=== PATIENT | female | born 1935 | race Caucasian/White ===

== ENCOUNTER 2020-03-24 06:53 | Inpatient (IN) ==
[2020-03-24] MEDS ORDERED: Ondansetron 4 MG/2 ML VIAL IVP PRN (08:59)
[2020-03-24] MEDS ORDERED: Naloxone 0.4 MG/ML INJ IVP PRN (08:59)
[2020-03-24] MEDS ORDERED: Perflutren Lipid Microsphere 1.3 ML in 0.9 % Sodium Chloride 8.7 ML IVP PRN (09:01)
[2020-03-24] MEDS ORDERED: D5% in Water 1,000 ML IVC PRN (13:18)
[2020-03-24] MEDS ORDERED: *HR* Dextrose 50 % in Water (Vial) 50 ML VIAL IVP PRN (13:18)
[2020-03-24] MEDS ORDERED: Dextrose Gel 15 GM/37.5 ML TUBE PO PRN ×2 (13:18)
[2020-03-24] MEDS ORDERED: *HR* Heparin 5,000 UNIT/ML VIAL IVP PRN ×2 (14:25)
[2020-03-24 16:02] LABS: Hematocrit 37.3 % (35.3-44.9); Hemoglobin 12.2 g/dL (11.5-15.4); Mean Corpuscular HGB Conc 32.7 g/dL (31.6-35.5); Mean Corpuscular Hemoglobin 31.5 pg (28.0-33.3); Mean Corpuscular Volume 96.4 fL (83.0-100.0); Mean Platelet Volume 10.6 fL (9.4-12.4); Platelet Count 130 K/mcL (140-400); Red Blood Count 3.87 M/mcL (3.82-4.97); Red Cell Distribution Width 14.1 % (11.5-14.5); White Blood Count 8.3 K/mcL (4.3-11.1)
[2020-03-24 16:07] LABS: Heparin anti-factor XA UFH 0.35 IU/mL (0.30-0.70); INR 1.3; Prothrombin Time 14.5 Seconds (9.4-12.1)
[2020-03-24 16:21] LABS: Calcium 9.2 mg/dL (8.6-10.3); Potassium 4.9 mEq/L (3.5-5.1)
[2020-03-24] MEDS: Heparin 25,000UNIT/250ML 1/2NS 25,000 UNIT/250 ML IV.SOLN IVC SCH (16:57)
[2020-03-24 17:05] LABS: Magnesium 1.8 mg/dL (1.6-2.6)
[2020-03-24] MEDS ORDERED: *HR* Warfarin 2.5 MG TABLET PO ONE (18:00)
[2020-03-24] MEDS ORDERED: Warfarin perPT PO PRN (18:00)
[2020-03-24] MEDS: Insulin LISPRO 300 UNITS/3 ML VIAL SQ SCH (18:38)
[2020-03-25 02:57] LABS: Basophils % 0.5 %; Eosinophils % 0.2 %; Hematocrit 37.8 % (35.3-44.9); Hemoglobin 12.2 g/dL (11.5-15.4); Immature Granulocytes % 0.6 % (0-4); Lymphocytes # 1.2 K/mcL (0.6-4.6); Lymphocytes % 14.5 %; Mean Corpuscular HGB Conc 32.3 g/dL (31.6-35.5); Mean Corpuscular Volume 95.9 fL (83.0-100.0); Mean Platelet Volume 11.2 fL (9.4-12.4); Monocytes # 0.6 K/mcL (0.0-1.3); Monocytes % 7.5 %; Neutrophils # 6.5 K/mcL (1.6-8.9); Platelet Count 144 K/mcL (140-400); Red Blood Count 3.94 M/mcL (3.82-4.97); Red Cell Distribution Width 14.2 % (11.5-14.5); Segmented Neutrophils % 76.7 %; White Blood Count 8.5 K/mcL (4.3-11.1)
[2020-03-25 03:01] LABS: INR 1.5; Prothrombin Time 16.6 Seconds (9.4-12.1)
[2020-03-25 03:15] LABS: Magnesium 1.8 mg/dL (1.6-2.6); Potassium 5.3 mEq/L (3.5-5.1)
[2020-03-25] MEDS: Insulin LISPRO 300 UNITS/3 ML VIAL SQ SCH ×3 (08:17→18:19)
[2020-03-25] MEDS: Metoprolol XL (24 HR) Succ 25 MG TAB.ER.24H PO SCH (08:22)
[2020-03-25] MEDS: Aspirin Enteric Coated 81 MG Tablet PO SCH (08:22)
[2020-03-25] MEDS: 0.9 % Sodium Chloride 1,000 ML IVC SCH (11:19)
[2020-03-25] MEDS ORDERED: *HR* Heparin 10,000 UNIT/10 ML VIAL ONE (12:37)
[2020-03-25] MEDS ORDERED: Nitroglycerin 1,000 MCG/10 ML VIAL IV ONE (12:37)
[2020-03-25] MEDS ORDERED: ISOVUE-370 200 ML INFUS..BTL ONE (12:37)
[2020-03-25] MEDS ORDERED: 0.9 % Sodium Chloride 2,000 ML ONE (12:37)
[2020-03-25] MEDS ORDERED: Heparin 1,000 UNITS/500 mL 500 ML ONE (12:37)
[2020-03-25] MEDS ORDERED: *HR* Midazolam HCl 2 MG/2 ML VIAL ONE (12:52)
[2020-03-25] MEDS ORDERED: *HR* FentaNYL (PF) 100 MCG/2 ML VIAL ONE (12:52)
[2020-03-25] MEDS ORDERED: Nitroglycerin 0.4 MG TAB.SUBL SL PRN (14:12)
[2020-03-25] MEDS ORDERED: *HR* Warfarin 2.5 MG TABLET PO ONE (18:00)
[2020-03-26 04:59] LABS: Hematocrit 34.7 % (35.3-44.9); Hemoglobin 11.2 g/dL (11.5-15.4); Mean Corpuscular HGB Conc 32.3 g/dL (31.6-35.5); Mean Corpuscular Hemoglobin 31.4 pg (28.0-33.3); Mean Corpuscular Volume 97.2 fL (83.0-100.0); Mean Platelet Volume 11.3 fL (9.4-12.4); Platelet Count 114 K/mcL (140-400); Red Blood Count 3.57 M/mcL (3.82-4.97); Red Cell Distribution Width 14.3 % (11.5-14.5); White Blood Count 4.7 K/mcL (4.3-11.1)
[2020-03-26 05:08] LABS: INR 1.5; Prothrombin Time 17.4 Seconds (9.4-12.1)
[2020-03-26 05:12] LABS: Calcium 8.7 mg/dL (8.6-10.3); Potassium 4.7 mEq/L (3.5-5.1)
[2020-03-26] MEDS: 0.9 % Sodium Chloride 1,000 ML IVC SCH (06:36)
[2020-03-26] MEDS: Insulin LISPRO 300 UNITS/3 ML VIAL SQ SCH ×3 (07:19→16:48)
[2020-03-26] MEDS: Aspirin Enteric Coated 81 MG Tablet PO SCH (07:23)
[2020-03-26] MEDS: Metoprolol XL (24 HR) Succ 25 MG TAB.ER.24H PO SCH (07:23)
[2020-03-26] MEDS: Heparin 25,000UNIT/250ML 1/2NS 25,000 UNIT/250 ML IV.SOLN IVC SCH ×2 (10:32→13:43)
[2020-03-26] MEDS ORDERED: *HR* Midazolam HCl 5 MG/5 ML VIAL IVP PRN (11:10)
[2020-03-26] MEDS ORDERED: Lidocaine Viscous Oral Soln 15 ML SOLUTION MM PRN (11:10)
[2020-03-26] MEDS ORDERED: *HR* FentaNYL (PF) 100 MCG/2 ML VIAL IVP PRN (11:10)
[2020-03-26] MEDS ORDERED: 0.9 % Sodium Chloride 500 ML IVC ONE (11:10)
[2020-03-26] MEDS ORDERED: Heparin 25,000UNIT/250ML 1/2NS 25,000 UNIT/250 ML IV.SOLN IVC SCH (13:20)
[2020-03-26] MEDS ORDERED: *HR* Heparin 5,000 UNIT/ML VIAL IVP PRN ×2 (13:22)
[2020-03-26] MEDS ORDERED: *HR* Heparin 5,000 UNIT/ML VIAL IVP ONE (13:22)
[2020-03-26] MEDS ORDERED: Warfarin perPT PO PRN (18:00)
[2020-03-26] MEDS ORDERED: *HR* Warfarin 2.5 MG TABLET PO ONE (18:00)
[2020-03-27 03:05] LABS: Heparin anti-factor XA UFH 0.38 IU/mL (0.30-0.70)
[2020-03-27 03:06] LABS: INR 1.6
[2020-03-27 08:17] LABS: Basophils % 0.5 %; Eosinophils # 0.1 K/mcL (0.0-0.6); Eosinophils % 1.4 %; Hematocrit 34.8 % (35.3-44.9); Hemoglobin 11.3 g/dL (11.5-15.4); Immature Granulocytes % 0.5 % (0-4); Lymphocytes # 1.3 K/mcL (0.6-4.6); Lymphocytes % 23.4 %; Mean Corpuscular HGB Conc 32.5 g/dL (31.6-35.5); Mean Corpuscular Hemoglobin 30.9 pg (28.0-33.3); Mean Corpuscular Volume 95.1 fL (83.0-100.0); Monocytes # 0.5 K/mcL (0.0-1.3); Monocytes % 8.1 %; Neutrophils # 3.7 K/mcL (1.6-8.9); Platelet Count 113 K/mcL (140-400); Red Blood Count 3.66 M/mcL (3.82-4.97); Red Cell Distribution Width 14.4 % (11.5-14.5); Segmented Neutrophils % 66.1 %; White Blood Count 5.7 K/mcL (4.3-11.1)
[2020-03-27 08:33] LABS: Calcium 8.8 mg/dL (8.6-10.3); Potassium 4.7 mEq/L (3.5-5.1)
[2020-03-27] MEDS: Insulin LISPRO 300 UNITS/3 ML VIAL SQ SCH ×3 (08:34→16:49)
[2020-03-27] MEDS: Metoprolol XL (24 HR) Succ 25 MG TAB.ER.24H PO SCH (08:35)
[2020-03-27] MEDS: 0.9 % Sodium Chloride 1,000 ML IVC SCH ×2 (08:38→18:59)
[2020-03-27] MEDS: Aspirin Enteric Coated 81 MG Tablet PO SCH (08:45)
[2020-03-27] MEDS: Magnesium Oxide 400 MG TABLET PO SCH (08:46)
[2020-03-27] MEDS: Ascorbic Acid 500 MG TABLET PO SCH (08:46)
[2020-03-27] MEDS ORDERED: *HR* Warfarin 2.5 MG TABLET PO ONE (18:00)
[2020-03-28] MEDS: Heparin 25,000UNIT/250ML 1/2NS 25,000 UNIT/250 ML IV.SOLN IVC SCH ×2 (02:40→13:43)
[2020-03-28 04:18] LABS: Basophils % 0.6 %; Eosinophils # 0.1 K/mcL (0.0-0.6); Eosinophils % 2.1 %; Hematocrit 33.2 % (35.3-44.9); Hemoglobin 10.8 g/dL (11.5-15.4); Immature Granulocytes % 0.6 % (0-4); Lymphocytes # 1.2 K/mcL (0.6-4.6); Lymphocytes % 23.2 %; Mean Corpuscular HGB Conc 32.5 g/dL (31.6-35.5); Mean Corpuscular Hemoglobin 31.1 pg (28.0-33.3); Mean Corpuscular Volume 95.7 fL (83.0-100.0); Mean Platelet Volume 10.7 fL (9.4-12.4); Monocytes # 0.4 K/mcL (0.0-1.3); Monocytes % 7.9 %; Neutrophils # 3.4 K/mcL (1.6-8.9); Nucleated Red Blood Cells 0.4 /100 WBC (0); Platelet Count 113 K/mcL (140-400); Red Blood Count 3.47 M/mcL (3.82-4.97); Red Cell Distribution Width 14.4 % (11.5-14.5); Segmented Neutrophils % 65.6 %; White Blood Count 5.2 K/mcL (4.3-11.1)
[2020-03-28 04:20] LABS: Heparin anti-factor XA UFH 0.34 IU/mL (0.30-0.70)
[2020-03-28 04:21] LABS: INR 1.6; Prothrombin Time 18.2 Seconds (9.4-12.1)
[2020-03-28 04:38] LABS: Calcium 8.7 mg/dL (8.6-10.3); Potassium 4.6 mEq/L (3.5-5.1)
[2020-03-28] MEDS: Insulin LISPRO 300 UNITS/3 ML VIAL SQ SCH ×3 (07:26→16:46)
[2020-03-28] MEDS: Magnesium Oxide 400 MG TABLET PO SCH (08:31)
[2020-03-28] MEDS: Metoprolol XL (24 HR) Succ 25 MG TAB.ER.24H PO SCH (08:31)
[2020-03-28] MEDS: Ascorbic Acid 500 MG TABLET PO SCH (08:31)
[2020-03-28] MEDS: Aspirin Enteric Coated 81 MG Tablet PO SCH (08:31)
[2020-03-28] MEDS ORDERED: *HR* Warfarin 5 MG TABLET PO ONE (18:00)
[2020-03-28] MEDS: 0.9 % Sodium Chloride 1,000 ML IVC SCH (19:27)
[2020-03-29 04:03] LABS: Basophils % 0.7 %; Eosinophils # 0.1 K/mcL (0.0-0.6); Eosinophils % 2.2 %; Hematocrit 34.1 % (35.3-44.9); Hemoglobin 10.8 g/dL (11.5-15.4); Immature Granulocytes % 0.4 % (0-4); Lymphocytes % 22.7 %; Mean Corpuscular HGB Conc 31.7 g/dL (31.6-35.5); Mean Corpuscular Hemoglobin 30.6 pg (28.0-33.3); Mean Corpuscular Volume 96.6 fL (83.0-100.0); Mean Platelet Volume 10.9 fL (9.4-12.4); Monocytes # 0.3 K/mcL (0.0-1.3); Monocytes % 6.7 %; Platelet Count 108 K/mcL (140-400); Red Blood Count 3.53 M/mcL (3.82-4.97); Red Cell Distribution Width 14.6 % (11.5-14.5); Segmented Neutrophils % 67.3 %; White Blood Count 4.5 K/mcL (4.3-11.1)
[2020-03-29 04:07] LABS: INR 1.7; Prothrombin Time 19.6 Seconds (9.4-12.1)
[2020-03-29 04:19] LABS: Calcium 8.2 mg/dL (8.6-10.3); Phosphorous 3.2 mg/dL (2.7-4.5); Potassium 4.3 mEq/L (3.5-5.1)
[2020-03-29] MEDS: Insulin LISPRO 300 UNITS/3 ML VIAL SQ SCH ×3 (07:50→16:37)
[2020-03-29] MEDS: Ascorbic Acid 500 MG TABLET PO SCH (09:24)
[2020-03-29] MEDS: Aspirin Enteric Coated 81 MG Tablet PO SCH (09:24)
[2020-03-29] MEDS: Metoprolol XL (24 HR) Succ 25 MG TAB.ER.24H PO SCH (09:25)
[2020-03-29] MEDS: Magnesium Oxide 400 MG TABLET PO SCH (09:25)
[2020-03-29] MEDS: 0.9 % Sodium Chloride 1,000 ML IVC SCH (16:36)
[2020-03-29] MEDS: Heparin 25,000UNIT/250ML 1/2NS 25,000 UNIT/250 ML IV.SOLN IVC SCH (16:36)
[2020-03-29] MEDS ORDERED: *HR* Warfarin 2.5 MG TABLET PO ONE (18:00)
[2020-03-30 01:44] LABS: INR 2.6; Prothrombin Time 28.9 Seconds (9.4-12.1)
[2020-03-30 02:01] LABS: Calcium 8.4 mg/dL (8.6-10.3); Phosphorous 3.1 mg/dL (2.7-4.5); Potassium 4.5 mEq/L (3.5-5.1)
[2020-03-30 06:18] VITALS: BP 106/53
[2020-03-30] MEDS: Insulin LISPRO 300 UNITS/3 ML VIAL SQ SCH ×2 (08:02→14:08)
[2020-03-30] MEDS: Metoprolol XL (24 HR) Succ 25 MG TAB.ER.24H PO SCH (08:28)
[2020-03-30] MEDS: Ascorbic Acid 500 MG TABLET PO SCH (08:28)
[2020-03-30] MEDS: Magnesium Oxide 400 MG TABLET PO SCH (08:29)
[2020-03-30] MEDS: Aspirin Enteric Coated 81 MG Tablet PO SCH (08:29)
[2020-03-30] MEDS ORDERED: *HR* Warfarin 2.5 MG TABLET PO ONE (18:00)
== END 2020-03-30 14:43 | disposition home or self-care (01) | DRG 281 ==
LOC: 3BNU → SUATTDRO 03-25 19:59
PROVIDERS: ADMIT Student in an Organized Health Care Education/Training Program; ATTEND Internal Medicine